=== PATIENT | female | born 1945 | race Asian ===

== ENCOUNTER 2019-11-20 08:07 | Inpatient (IN) | payer SELFPAY ==
[~2019-11-20] VITALS: Ht 160 cm; Wt 49.4 kg
[2019-11-20 08:37] LABS: HEMATOCRIT 37.8 % (37.0-47.0); MEAN CELL VOLUME 95 fl (80.0-100.0); MEAN CORPUSCULAR HEMOGLOBIN 33 pg (27.0-31.0); MEAN CORPUSCULAR HGB CONC 34 g/dl (33.0-37.0); MEAN PLATELET VOLUME 8.8 fl (7.4-10.4); PLATELET COUNT 166 K/mm3 (130-400); RED BLOOD COUNT 3.98 M/mm3 (4.10-5.30); REDCELL DISTRIBUTION WIDTH-CV 12.4 % (11.5-14.5)
[2019-11-20 08:46] LABS: ALBUMIN 3.9 gm/dL (3.5-5.0); BILIRUBIN,TOTAL 0.3 mg/dL (0.0-1.0); CREATININE, serum 0.6 (0.52-1.25); POTASSIUM 4.1 mmol/L (3.4-5.0); TOTAL PROTEIN 6.6 gm/dL (6.4-8.2)
[2019-11-20 09:28] LABS: BAND 29 % (0-10); LYMPHOCYTE 17 % (20.0-51.0); NEUTROPHILS 52 % (42.0-75.2); PLATELET ESTIMATE NORMAL (NORMAL)
[2019-11-20 09:32] LABS: COLLECTION METHOD CLEAN CATCH
[2019-11-20 09:54] LABS: MUCOUS Present /lpf; PH 6 (5-8); SQUAMOUS EPITHELIAL 0-2 /hpf; URINE APPEARANCE Clear; URINE BACTERIA Rare /hpf; URINE BILIRUBIN Negative (NEGATIVE); URINE BLOOD Negative (NEGATIVE); URINE COLOR Yellow; URINE GLUCOSE Negative (NEGATIVE); URINE KETONE Trace (NEGATIVE); URINE LEUKOCYTE ESTERASE Negative (NEGATIVE); URINE NITRATE Negative (NEGATIVE); URINE PROTEIN(semi-quant) 1+ (NEGATIVE); URINE UROBILINOGEN Negative (NEGATIVE)
--- NOTE | 2019-11-20 15:40 | NUR ---
PATIENT IS RESTING IN BED. PATIENT SPEAKS SERBIAN AND NO TURKISH AT ALL. THE DAUGHTER AND SON-N-LAW AT THE BEDSIDE TO ANSWER QUESTIONS. PATIENT SEEMS TO NOT BE IN ANY DISTRESS AT THIS TIME. IV FLUIDS HUNG AND RUNNING. THIS NURSE EXPLAINED THE CALL LIGHT TO THE PATIENT AND THE DAUGHTER. PATIENTS LUNG SOUNDS ARE CLEAR IN THE UPPER LOBES BUT CRACKLES IN THE LEFT LOWER LOBE. SHE IS A SMOKER OF 39 YEARS SO HAS A NICOTENE PATCH TO HER LEFT UPPER ARM. COUGH IS JUST A DRY HACKY COUGH. PATIENT DOES USE A CANE TO HELP HER WHEN SHE IS UP. POSITIVE FOR THE SORENSEN JENNIFER FLU SO STANDARD DROPLET AND CONTACT PRECAUTIONS ARE IN USE. PATIENT ORIGINALLY IN [place] TO VISIT FAMILY AND THEN GOT SICK. HER ORIGINAL OXYGEN LEVELS UPON ENTERING THE ER WAS IN THE 80'S SO SHE IS ON 3L O2 AT THIS TIME THAT IS NOT NORMAL FOR HER. SHE ORIGINALLY DID NOT WANT TO STAY BUT FAMILY CONVINCED HER TO STAY. PATIENT CAN GET ANXIOUS AT TIMES ESPECIALLY WHEN SHE IS UP OUT OF BED AND HER OXYGEN SATUATIONS DROP.
[2019-11-20 16:59] VITALS: BP 121/71; PULSE 82; TEMP 97.6
[2019-11-20 17:00] VITALS: BP 121/71; PULSE 82; TEMP 97.6
--- NOTE | 2019-11-20 19:06 | NUR ---
Patient is resting in bed, family is at bedside.
--- NOTE | 2019-11-20 19:40 | NUR ---
Family in hallway reports patient feeling "warm." Current temperature 98.8 orally. Patient reports feeling "cold." Resting in bed with blankets on at this time. Will monitor.
[2019-11-20 20:45] VITALS: BP 131/66; PULSE 99; TEMP 102.9
--- NOTE | 2019-11-20 20:45 | NUR ---
Resting in bed. Assessment complete. Right lung coarse throughout-Patient currently right on right side. Left upper lobe diminished. Left lower lobe clear. Having shortness of breath with tachypnea. Currently on 5 liters nasal cannula with oxygen saturation 91-94%. Heart sounds normal. Bowels active x4. Pulses strong throughout. No edema noted. IV left forearm infusing without complications as ordered. Denies pain. Temperature elevated at 102.9 at this time. Removed covers and decreased room temperature. Will provide patient with PRN tylenol. Family denies needs at this time. Will monitor.
--- NOTE | 2019-11-20 21:15 | NUR ---
Patient temperture 102.9. Provided tylenol at this time. Call light in reach.
--- NOTE | 2019-11-20 21:35 | NUR ---
Spoke with respiratory regarding patient dyspnea and requirement of 5 liters of oxygen. No breathing tx at this time. Spoke with Dr. Liang-patient should be on duoneb QID and PRN. Added orders at this time. Respiratory notified.
[2019-11-20 22:20] VITALS: TEMP 102.5
--- NOTE | 2019-11-20 22:20 | NUR ---
Patient temperature elevated at 102.5. Updated Dr. Liang. Given x1 dose of tylenol 325mg now. Will monitor. Provided to patient. Call light in reach.
[2019-11-20 22:40] VITALS: TEMP 99.8
[2019-11-20 23:40] VITALS: TEMP 98.1
--- NOTE | 2019-11-20 23:40 | NUR ---
Temperature taken. Recently received breathing tx. No needs/complaints at this time. call light in reach.
[2019-11-21] VITALS (8 sets, daily range): BP systolic 108–122; BP diastolic 53–63; PULSE 60–94; TEMP 98.7–100.3
--- NOTE | 2019-11-21 06:21 | NUR ---
Patient had a fever earlier in evening with max of 102.9. Otherwise uneventful night. Resting in bed this AM.
--- NOTE | 2019-11-21 07:27 | NUR ---
Report given to VANDANA Wilkins
[2019-11-21 07:55] LABS: GRAN # 2.5 (1.4-6.5); GRAN % 69.2 % (42.2-75.2); HEMOGLOBIN 11.3 g/dl (12.5-16.0); LYMPH # 0.9 (1.2-3.4); LYMPH % 25.8 % (20.0-51.0); MEAN CELL VOLUME 96 fl (80.0-100.0); MEAN CORPUSCULAR HEMOGLOBIN 32 pg (27.0-31.0); MEAN CORPUSCULAR HGB CONC 33 g/dl (33.0-37.0); MEAN PLATELET VOLUME 8.9 fl (7.4-10.4); MONO # 0.2 (0.1-0.6); MONO % 4.7 % (1.7-9.3); PLATELET COUNT 145 K/mm3 (130-400); RED BLOOD COUNT 3.51 M/mm3 (4.10-5.30); REDCELL DISTRIBUTION WIDTH-CV 12.8 % (11.5-14.5)
[2019-11-21 08:05] LABS: ALBUMIN 2.7 gm/dL (3.5-5.0); BILIRUBIN,TOTAL 0.1 mg/dL (0.0-1.0); CALCIUM 7.6 mg/dL (8.4-10.2); CREATININE, serum 0.52 (0.52-1.25); POTASSIUM 3.7 mmol/L (3.4-5.0); TOTAL PROTEIN 5.3 gm/dL (6.4-8.2)
[2019-11-21 08:17] LABS: HEMATOCRIT 33.8 % (37.0-47.0)
--- NOTE | 2019-11-21 08:45 | NUR ---
Assessment complete. Patient alert. Patient only speaks Macedonian and is unable to understand most Swazi. Family at the bedside to assist with some communication. VSS 4L NC O2. No reported SOB or pain. IV CDI, fluids infusing. No further needs expressed from patient or family. Call light within reach. Droplet precautions in place
--- NOTE | 2019-11-21 12:50 | NUR ---
Claudette, RN notified of patient's increasing temperature. RN and RT notified of patient needing a high flow nasal cannula with humidifaction at this time.
--- NOTE | 2019-11-21 18:07 | NUR ---
Patient resting in bed, family at the bedside. Alert, unsure if oriented due to language barrier. VSS. 6L high flow NC. IV CDI, fluids infusing. Has an elevated temperature. Reporting worsening cough with no sputum production. Denies pain. Reported one episode of diarrhea. Droplet precautions in place. No further needs expressed from patient or family. Call light within reach
--- NOTE | 2019-11-21 18:50 | NUR ---
Pt report received from day shift nurse. Meet and greet performed and Pt noted to be sitting in bed with family at bedside. Pt does not speak Mohawk and her family translates for her. Pt resting peacefully with no s/s of distress noted. Pt family reports that PT has no wants/needs at this time. Will continue to monitor.
--- NOTE | 2019-11-21 23:03 | NUR ---
Pt resting peacefully in bed with eyes closed and family at bedside. Pt presents with no s/s of distress noted and family denies that Pt has any wants/needs at this time. Will continue to monitor.
[2019-11-22 01:57] VITALS: TEMP 97.7
[2019-11-22 03:46] VITALS: BP 118/87; PULSE 102; TEMP 99.6
--- NOTE | 2019-11-22 04:24 | NUR ---
PT is noted to sleeping peacefully in bed with family at bedside also asleep. No s/s of distress noted at this time. Will continue to monitor.
--- NOTE | 2019-11-22 06:36 | NUR ---
PT resting in bed with eyes closed and family members at bedside. PT aroused for AM meds and denies wants/needs at this time. Call light within reach and beverages available. No s/s of distress noted.
--- NOTE | 2019-11-22 07:14 | NUR ---
PT report given to Claudette ROSS
[2019-11-22 07:54] LABS: HEMOGLOBIN 10.5 g/dl (12.5-16.0); MEAN CELL VOLUME 98 fl (80.0-100.0); MEAN CORPUSCULAR HEMOGLOBIN 33 pg (27.0-31.0); MEAN CORPUSCULAR HGB CONC 33 g/dl (33.0-37.0); MEAN PLATELET VOLUME 8.9 fl (7.4-10.4); PLATELET COUNT 139 K/mm3 (130-400); RED BLOOD COUNT 3.22 M/mm3 (4.10-5.30)
[2019-11-22 08:07] LABS: ALBUMIN 2.7 gm/dL (3.5-5.0); BILIRUBIN,TOTAL 0.1 mg/dL (0.0-1.0); CALCIUM 7.5 mg/dL (8.4-10.2); CREATININE, serum 0.45 (0.52-1.25); POTASSIUM 3.4 mmol/L (3.4-5.0); TOTAL PROTEIN 5.1 gm/dL (6.4-8.2)
[2019-11-22 08:11] LABS: HEMATOCRIT 31.5 % (37.0-47.0)
--- NOTE | 2019-11-22 08:45 | NUR ---
Assessment complete. Patient alert and unable to determine orientation due to language barrier. Family at the bedside to help assist with communication. VSS 6L NC O2 high flow. Dyspnea with exertion and reported chest pain from coughing. IV CDI, fluids infusing. Droplet precautions in place. No further needs expressed from patient. Call light within reach
[2019-11-22 08:53] LABS: BAND 29 % (0-10); LYMPHOCYTE 40 % (20.0-51.0); NEUTROPHILS 27 % (42.0-75.2); PLATELET ESTIMATE NORMAL (NORMAL)
--- NOTE | 2019-11-22 09:18 | NUR ---
Patient is visiting local family and is originally from [place], and she plans to discharge home with her local family members (Pola Patel [phone]) and her daughter and son-in-law have been present and help the patient with needs. Patient is semi-independent with daily living activities and uses a cane for mobility assistance. Patient does not have a local primary care physician, her pharmacy is [facility], and does not have advance directives completed at this time. No further needs and family welfare social work professor will follow as needed.
[2019-11-22 12:00] VITALS: BP 150/70; PULSE 101; TEMP 97.6
--- NOTE | 2019-11-22 15:10 | NUR ---
Patient taken by wheelchair to CT
[2019-11-22 16:56] VITALS: BP 137/75; PULSE 60; TEMP 98.3
--- NOTE | 2019-11-22 18:15 | NUR ---
Patient had an uneventful day. VSS 5L NC O2. IV CDI. No reported fevers or diarrhea. Family has been at the bedside. Denies pain and reporting discomfort in chest from coughing. No further needs expressed from patient. Call light within reach. Droplet precautions in place.
[2019-11-22 19:50] VITALS: BP 136/86; PULSE 76; TEMP 98.1
--- NOTE | 2019-11-22 19:50 | NUR ---
Patient assessed at this time. Alert and oriented, and able to make needs known. Communication barrier, family assisting with communication. Denies pain and discomfort. Peripheral IV to left forearm flushed. Site without redness, warmth, swelling, and pain. Denies SOB and dyspnea. LS CTA in upper lobes, diminished in lower lobes. Continues on oxygen at 4 L/min via NC. Respiations even and unlabored. HRR. Capillary refill less than 3 seconds. Non-tenting skin turgor. BSAx4. Abodmen soft and non-tender. No edema. Voices no questions, needs, or concerns at this time. Resting in bed with call light within reach.
[2019-11-22 23:54] VITALS: BP 136/85; PULSE 77; TEMP 98.1
[2019-11-23] VITALS (369 sets, daily range): BP systolic 124–133; BP diastolic 71–92; PULSE 73–100; TEMP 98.1–98.7; O2SAT 80–100
--- NOTE | 2019-11-23 05:34 | NUR ---
Patient has been resting in bed with call light within reach. Denies having pain and discomfort. Voices no questions, needs, or concerns. Continues on oxygen at 4 L/min via NC. Call light is within reach.
--- NOTE | 2019-11-23 06:56 | NUR ---
SPO2 85% ON 4LPM HFNC PLACED ON OXYMASK 8 LPM 90%
--- NOTE | 2019-11-23 07:00 | NUR ---
RT reported they had to increase patient's oxygen to 8 L/min from 4 L/min. Patient had been running 94-95% throughout the night when checked on 4 L. Checked multiple fingers and earlobe with RT, and oxygen levels were 88-90% on 8 L. LS CTA. Respirations seem more labored than last night. Call placed to Dr. Payne at this time. New order for STAT CXR and ABG. Called orders to RT and Radiology. Orders put in computer. Patient denies chest pain and discomfort.
[2019-11-23 07:04] LABS: HEMOGLOBIN 11.4 g/dl (12.5-16.0); MEAN CELL VOLUME 97 fl (80.0-100.0); MEAN CORPUSCULAR HEMOGLOBIN 32 pg (27.0-31.0); MEAN CORPUSCULAR HGB CONC 33 g/dl (33.0-37.0); MEAN PLATELET VOLUME 8.9 fl (7.4-10.4); PLATELET COUNT 146 K/mm3 (130-400); RED BLOOD COUNT 3.52 M/mm3 (4.10-5.30); REDCELL DISTRIBUTION WIDTH-CV 13.1 % (11.5-14.5)
[2019-11-23 07:15] LABS: HEMATOCRIT 34.1 % (37.0-47.0)
[2019-11-23 07:26] LABS: CALCIUM 8.1 mg/dL (8.4-10.2); CREATININE, serum 0.52 (0.52-1.25); POTASSIUM 3.8 mmol/L (3.4-5.0)
[2019-11-23 07:27] LABS: ALBUMIN 3.1 gm/dL (3.5-5.0); BILIRUBIN,TOTAL 0.3 mg/dL (0.0-1.0); CREATININE, serum 0.52 (0.52-1.25); POTASSIUM 3.8 mmol/L (3.4-5.0); TOTAL PROTEIN 5.6 gm/dL (6.4-8.2)
--- NOTE | 2019-11-23 08:00 | NUR ---
Shift assessment complete at this time. Plan of care reviewed at bedside with patient. Additional time taken to address any other needs or concerns with patient or family. Pt noted to be dyspneic, more so while ambulating, while resting in bed. O2 needs have increased to 8L/min from previous shifts 4L/min O2 settings. KRISTA Desir notified of changes and Dr. Payne will be around shortly to examine the patient. Pt denies any pain or additional discomforts. Bed in low position, call light within reach, will continue to monitor.
[2019-11-23 08:30] LABS: ARTERIAL BLD GAS TCO2 CT 27.1; ARTERIAL BLOOD GAS PCO2 38.3 mmHg (35-45); ARTERIAL BLOOD GAS PO2 49.9 mmHg (80-100); ARTERIAL BLOOD GAS pH 7.45 (7.35-7.45)
[2019-11-23 08:43] LABS: BAND 6 % (0-10); LYMPHOCYTE 29 % (20.0-51.0); NEUTROPHILS 58 % (42.0-75.2)
[2019-11-23 08:45] LABS: PLATELET ESTIMATE NORMAL (NORMAL); TOXIC GRANULATION PRESENT
[2019-11-23 08:46] LABS: OVALOCYTES 1+; TARGET CELLS 1+
--- NOTE | 2019-11-23 09:33 | NUR ---
SW attended clinical rounds. The patient's family at bedside. The patient remains on 5-6 liters of oxygen. The patient is to be transferred to ICU. The patient is self pay. SW consulted Financial Counselor, Jeffrey. SW to continue to follow.
--- NOTE | 2019-11-23 11:30 | NUR ---
PATIENT COMED DOWN TO ICU. SHE IS CURRENTLY ON 12 L/MIN HIFLOW OXYMASK. SHE GETS SHORT OF BREATH WITH EXERTION. OTHER VS WNL. CARE TAKEN OVER AT THIS TIME.
--- NOTE | 2019-11-23 13:49 | NUR ---
Elizabeth Whitehead with [employer] finance met with the patient's family. The patient is part of the [employer] in [place] and has health insurance thru the country. Elizabeth reports the patient's family will gather information. Elizabeth also provided FAA. check services clerk will continue to follow.
--- NOTE | 2019-11-23 15:14 | NUR ---
DR. SHIPLEY IN ROOM AT THIS TIME FOR MEETING WITH PATIENT AND FAMILY. [employer] TRANSCRIPTIONIST ASSISTING WITH CONVERSATION. PATIENT IS ADAMENT THAT SHE WILL GET BACK ON PLANE TO [place] IN 2 DAYS. SHE STATES THAT SHE DOESN'T CARE IF SHE DIES, SHE WANTS TO IN [place].
[2019-11-23 16:32] LABS: ARTERIAL BLD GAS O2 SATURATION 90.3 % (92-100); ARTERIAL BLD GAS TCO2 CT 25.5; ARTERIAL BLOOD GAS BASE EXCESS 0.4 (-2-2); ARTERIAL BLOOD GAS HCO3 24.4 meq/L (22-26); ARTERIAL BLOOD GAS PCO2 37.1 mmHg (35-45); ARTERIAL BLOOD GAS PO2 57.7 mmHg (80-100); ARTERIAL BLOOD GAS pH 7.44 (7.35-7.45)
--- NOTE | 2019-11-23 19:00 | NUR ---
REPORT GIVEN TO VANDANA GALDAMEZ
--- NOTE | 2019-11-23 19:00 | NUR ---
RECEIVED REPORT FROM VANDANA MAN. PT RESTING EASILY IN BED ON 5L VIA NC. VSS. CALL LIGHT WITHIN REACH. NO ACUTE S/S OF RESP DISTRESS NOTED AT THIS TIME.
--- NOTE | 2019-11-23 23:00 | NUR ---
PT PLACED ON AIRVO AT THIS TIME BY RT. SETTINGS: 30L WITH 50%, WILL MONTIOR PATIENT AND MAKE ADJUSTMENTS ACCORDING TO PT NEEDS AND VS.
[2019-11-24] VITALS (453 sets, daily range): BP systolic 108–121; BP diastolic 62–73; PULSE 67–120; TEMP 97.4–98.3; O2SAT 69–100
--- NOTE | 2019-11-24 02:30 | NUR ---
MT NOTIFIED NURSE PT IS AFIB RVR 150s. KINA MURPHY NOTIFIED AND ARRIVES TO BEDSIDE. PT DENIES ANY CP OR FEELS THE HEART RACING. NO OUTWARD S/S OF DISTRESS NOTED. EKG OBTAINED. NEW ORDERS RECEIVED. SEE MAR FOR MEDICATION ADMINISTRATION. AFTER CARDIZEM BOLUS, HR RESPONDED AND DROPPED TO 100-120. GTT STARTED PER PROTOCOL ORDERS.
[2019-11-24 02:58] LABS: HEMOGLOBIN 11.7 g/dl (12.5-16.0); MEAN CELL VOLUME 95 fl (80.0-100.0); MEAN CORPUSCULAR HEMOGLOBIN 32 pg (27.0-31.0); MEAN CORPUSCULAR HGB CONC 34 g/dl (33.0-37.0); MEAN PLATELET VOLUME 9.1 fl (7.4-10.4); PLATELET COUNT 161 K/mm3 (130-400); RED BLOOD COUNT 3.63 M/mm3 (4.10-5.30); REDCELL DISTRIBUTION WIDTH-CV 12.7 % (11.5-14.5)
[2019-11-24 03:01] LABS: HEMATOCRIT 34.4 % (37.0-47.0)
[2019-11-24 03:07] LABS: ALBUMIN 3.2 gm/dL (3.5-5.0); BILIRUBIN,TOTAL 0.4 mg/dL (0.0-1.0); CALCIUM 8.4 mg/dL (8.4-10.2); CREATININE, serum 0.53 (0.52-1.25); MAGNESIUM 1.7 mg/dL (1.6-2.3); POTASSIUM 3.3 mmol/L (3.4-5.0); TOTAL PROTEIN 6.1 gm/dL (6.4-8.2)
[2019-11-24 03:20] LABS: TROPONIN-I 0.109 ng/mL (0.000-0.035)
[2019-11-24 03:29] LABS: LYMPHOCYTE 48 % (20.0-51.0); METAMYELOCYTE 2 % (0-0); NEUTROPHILS 36 % (42.0-75.2)
--- NOTE | 2019-11-24 03:50 | NUR ---
KINA MURPHY NOTIFIED OF TROP, WBC, AND K LEVEL. SEE MAR. PHYSICIAN STATES OK TO CALL CARDIOLOGY CONSULT IN AM.
--- NOTE | 2019-11-24 04:35 | NUR ---
KINA MURPHY AT BEDSIDE AND SEES HR MAINTAINING 150-160s STILL. SEE MAR FOR NEW ORDERS. AFTER METOPROLOL PUSH, HR COMES DOWN TO 110-125. KINA MURPHY STATES IF HR HITS 130s AGAIN AND MAINTAINS, TO NOTIFY HER. PT RESTING IN BED EASILY.
[2019-11-24 05:00] LABS: ARTERIAL BLD GAS O2 SATURATION 90.4 % (92-100); ARTERIAL BLD GAS TCO2 CT 25.4; ARTERIAL BLOOD GAS BASE EXCESS 0.2 (-2-2); ARTERIAL BLOOD GAS HCO3 24.2 meq/L (22-26); ARTERIAL BLOOD GAS PCO2 37.2 mmHg (35-45); ARTERIAL BLOOD GAS pH 7.43 (7.35-7.45)
--- NOTE | 2019-11-24 05:05 | NUR ---
RT AT BEDSIDE ADJUSTING ARIVO BASED OFF OF ABG, CHANGED TO 40L WITH 60% FIO2. VSS. NO ACUTE S/S OF RESP DISTRESS NOTED AT THIS TIME.
--- NOTE | 2019-11-24 05:24 | NUR ---
PT NOTED TO BE IN SR IN THE 80s.
--- NOTE | 2019-11-24 07:00 | NUR ---
REPORT RECEIVED FROM VANDANA GALDAMEZ. PATIENT RESTING IN BED ON AIRVO. CARE TAKEN OVER AT THIS TIME.
[2019-11-24 14:58] LABS: MAGNESIUM 2.1 mg/dL (1.6-2.3); PHOSPHOROUS 2.6 mg/dL (2.5-4.5); POTASSIUM 3.7 mmol/L (3.4-5.0)
--- NOTE | 2019-11-24 19:10 | NUR ---
RECEIVED REPORT FROM VANDANA MAN. PT SITTING UP IN BED EATING A SNACK. VSS. PT ON [facility] FL. CALL LIGHT WITHIN REACH.
[2019-11-25] VITALS (1013 sets, daily range): BP systolic 121–214; BP diastolic 62–93; PULSE 69–91; TEMP 97.9–98.3; O2SAT 55–100
--- NOTE | 2019-11-25 01:30 | NUR ---
MT NOTIFIED RN THAT PT IS IN AFLUTTER, RATE CONTROLLED IN THE 80s. PT SLEEPING EASILY IN BED. NO ACUTE S/S OF DISTRESS NOTED.
--- NOTE | 2019-11-25 04:00 | NUR ---
PT NOTED TO BE BACK IN SR. NOTED TO OCCASSIONALLY BE GOING IN AND OUT OF AFLUTTER. REMAINING LESS THAN 100 BPM. PT RESTING IN BED WATCHING TV. CALL LIGHT WITHIN REACH.
[2019-11-25 04:58] LABS: GRAN # 3.9 (1.4-6.5); GRAN % 77.8 % (42.2-75.2); HEMOGLOBIN 10.5 g/dl (12.5-16.0); LYMPH # 0.8 (1.2-3.4); MEAN CELL VOLUME 95 fl (80.0-100.0); MEAN CORPUSCULAR HEMOGLOBIN 33 pg (27.0-31.0); MEAN CORPUSCULAR HGB CONC 34 g/dl (33.0-37.0); MEAN PLATELET VOLUME 9.3 fl (7.4-10.4); MONO # 0.3 (0.1-0.6); MONO % 5.8 % (1.7-9.3); PLATELET COUNT 193 K/mm3 (130-400); RED BLOOD COUNT 3.23 M/mm3 (4.10-5.30); REDCELL DISTRIBUTION WIDTH-CV 12.9 % (11.5-14.5)
[2019-11-25 05:03] LABS: HEMATOCRIT 30.7 % (37.0-47.0)
[2019-11-25 05:11] LABS: CALCIUM 8.1 mg/dL (8.4-10.2); CREATININE, serum 0.58 (0.52-1.25); POTASSIUM 3.6 mmol/L (3.4-5.0)
--- NOTE | 2019-11-25 07:56 | NUR ---
Report received from Cecy ROSS and care resumed.
--- NOTE | 2019-11-25 09:30 | NUR ---
Dr Gama in to see pt at this time.
--- NOTE | 2019-11-25 10:00 | NUR ---
Dr Liang in to see pt at this time.
--- NOTE | 2019-11-25 13:14 | NUR ---
(late entry 11/24) The patient is here visiting from [place] with two other travel companions. The family requested assistance with contacting the airline to change the flight that was supposed to fly out 11/25 at 0600. UTILITY HAND student assisted the family and contacted [employer]. [employer] respresentative reports he made a note regarding the patient's hospitalization. However, due to the reservation being made by a third alliance party (travel agency) he could not change it. The [employer] shipping services sales representative reports the travel agency can put a 72 hour or longer, postponement on the tickets. The family will have to contact the travel agency. [employer] shipping services sales representative provided UTILITY HAND student with the phone number to the travel agency, number was past along to family. UTILITY HAND student collaborated the above information with the patient's nurse.
--- NOTE | 2019-11-25 17:50 | NUR ---
Called to room from daughter and she asked for an enterpreter. Tranlator line called. Daughter explaining through tranlator that patient wants to be discharged and leave the hospital to go back home to [place]. Explained through shank archer that the patient was requiring to much medical support and oxygen to be cleared for discharge. Pt and daughters explained to shank archer that they didn't care and still wanted to leave. They stated they have a flight back to [place] and that the patient just wants to go home. They also stated they could not affore the hospital bill. Explained through enterpreter that according to the medical team of doctors caring for the patient, it was very likely that she would deteriorate very quickly once the oxygen was removed. Also explained to family that I could have them speak with social work and financial counselor regarding the financial concerns. Pt states she understands but does not need the oxygen. Explained through shank archer that doctors were not even sure that she would live long enought to make it on a plane. Daugher and patients state understanding and still requesting to leave. KINA Eckert and Dr Liang called to room who also were update that pt was wanting to leave the hospital. Explained that if patient left the hospital it would be against medical advise and that she would more then likely pass before even being able to get on a plane. Family and patient again stating that they want to leave the hospital. stating that patient may not even be able to make it out of the hospital before going into cardiac arrest or she mayh stop breathing. Doctor had shank archer explain this to family. They again state understanding and again say they still want to leave. A DNR was then explained through shank archer and this was relayed to family that if patient were to stop breathing would they like us to code or resuscitate the patient. The daughters stated no, she would be a DNR. AMA paperwork was then filled out by Tomeka CASTANON and read and translated to the family who again agree with leaving. AMA paperwork was signed by patient and daughter and then witnessed by SHOOTER HELPER and RN. Pt O2 was removed per request. Within 1 minute O2 sats mid 80's and pt having increased work of breathing. Family still wanting to proceed. INT to left forearm was dc'd and pt taken off tele and IV amiodarone. PICC line to right upper arm removed and pressure applied until hemostasis. Pt's O2 sats upper 70's by this time. Doctor and SHOOTER HELPER still present. At this time pt's sister and brother in law arrived. They were explained what was happening. Sister and brother in law tried talking to patient and daughters and to get them to stay in the hospital. Brothr in law was stating "she will and I wont feel good about her dying in my home." Daughters and patient still persistent on leaving. At this time O2 sat was removed, currently showing 74%. Pt was dressed and helped to wheelchair. Pt taken out to private car with daughters, sister, and brother in law present to take her home at 1715.
--- NOTE | 2019-11-26 08:28 | NUR ---
The patient left AMA yesterday evening, 11/25. There are no additional needs.
== END 2019-11-25 17:15 | disposition left against medical advice (07) | DRG 871 ==
LOC: COL.ER 08:07 → ICU 09:48 → MEDICAL 09:48 → ICU 11-23 09:29
PROVIDERS: Family Medicine; Internal Medicine Infectious Disease; Internal Medicine Pulmonary Disease; Nurse Practitioner Family; Physician Assistant; Student in an Organized Health Care Education/Training Program; ADMIT Hospitalist
PROC: 02HV33Z Insertion of Infusion Device into Superior Vena Cava, Percutaneous Approach (ICD-10-PCS; principal; 2019-11-23)
DX: A41.9 Sepsis, unspecified organism (principal); J18.9 Pneumonia, unspecified organism; J96.01 Acute respiratory failure with hypoxia; I21.A1 Myocardial infarction type 2; E87.1 Hypo-osmolality and hyponatremia; J10.1 Influenza due to other identified influenza virus with other respiratory manifestations; R73.9 Hyperglycemia, unspecified; E83.51 Hypocalcemia; F17.210 Nicotine dependence, cigarettes, uncomplicated; E83.42 Hypomagnesemia; I48.0 Paroxysmal atrial fibrillation; E87.6 Hypokalemia
CPT/HCPCS: 99222-AI; 99232-AI; 99233-AI; A4216; C1751; J0282; J0456; J0696; J1650; J1815; J2543; J2920; J3370; J3475; J3480; J7030; J7050; J7060; Q9967